=== PATIENT | female | born 1980 | race Caucasian/White ===

== ENCOUNTER → 2020-01-10 14:00 | Outpatient (BNVA) | payer OTHER, SELFPAY | PROVIDERS: Family Provider Family Medicine; PCP Family Medicine; Referring Provider Family Medicine; Visit Provider Nurse Practitioner Family | DX: N39.46 Mixed incontinence (principal) | CPT/HCPCS: 81001 ==

== ENCOUNTER 2020-06-25 11:47 | Outpatient (CLI) | payer OTHER, SELFPAY ==
--- NOTE | 2020-06-25 11:55 | MM_ITS ---
WS: [id number] BILATERAL DIGITAL SCREENING MAMMOGRAPHY WITH CAD CLINICAL INFORMATION: SCREENING HISTORY: Screening mammogram. No current complaints. COMPARISON: TECHNIQUE: Bilateral CC and MLO views. FINDINGS: The breasts are composed of heterogeneous fibroglandular density tissue, which can limit the detectio n of small underlying mass lesions. No suspicious mass, asymmetry, calcifications, or architectural d istortion. No evidence of malignancy. MM/[place] [id number] IMPRESSION: BI-RADS: 1-Negative FOLLOW UP: 1 Year Follow-up Recommend return to annual screening mammography.
== END 2020-06-25 11:48 | disposition home or self-care (01) ==
PROVIDERS: Family Provider Family Medicine; PCP Family Medicine; Visit Provider Specialist
DX: Z12.31 Encounter for screening mammogram for malignant neoplasm of breast (principal)
CPT/HCPCS: 77067

== ENCOUNTER 2021-04-29 16:07 | Outpatient (CLI) | payer OTHER, SELFPAY ==
--- NOTE | 2021-04-29 16:10 | CT_ITS ---
WS: [id number] CT PARANASAL SINUSES HISTORY: chronic sinusitis TECHNIQUE: Contiguous 2.5 mm axial images obtained through the sinuses. Images are reconstructed in s agittal and coronal planes. All CT scans at [facility] use at least one of these dose optimiz ation techniques: automated exposure control; mA and/or kV adjustment per patient size (includes targ eted exams where dose is matched to clinical indication); or iterative reconstruction. DLP: 354.02 mGycm COMPARISON: None available. Frontal sinuses: Normal. Sphenoid sinus: Normal. Ethmoid sinuses: Normal. Maxillary sinus: Mild diffuse lobulated mucoperiosteal thickening involving LEFT maxillary sinus. No air-fluid levels. Ostiomeatal unit: Widely patent. Prior septoplasty involving the RIGHT ostiomeatal unit. Unit is asym metrically wider on the RIGHT than on the LEFT. Visualized soft tissues are normal. Small bilateral posterior occipital lymph nodes are identified. CT/CT sinus wo con* [id number] IMPRESSION: 1. Mild lobulated diffuse periosteal thickening within the LEFT maxillary sinu s. 2. Postsurgical widening of the RIGHT ostiomeatal unit.
== END 2021-04-29 16:08 | disposition home or self-care (01) ==
PROVIDERS: PCP Family Medicine; Visit Provider Otolaryngology
DX: J32.9 Chronic sinusitis, unspecified (principal); G44.89 Other headache syndrome; J31.0 Chronic rhinitis
CPT/HCPCS: 70486